=== PATIENT | female | born 1995 | race Caucasian/White ===

== ENCOUNTER 2024-02-03 23:40 | Emergency (ER) | payer MEDICAID, SELFPAY ==
[2024-02-03 23:42] VITALS: BP 113/56; PULSE 70; RESP 18; TEMP 36.7; O2SAT 98; BMI 21.9
--- NOTE | 2024-02-03 23:49 | XR_ITS ---
PROCEDURE INFORMATION: Exam: XR Right Finger(s) Exam date and time: 02/04/2024 12:20 AM Age: 28 years old Clinical indication: Injury or trauma; Other: Smashed right index finger in door; Swelling (edema); Additional info: Right index finger injury TECHNIQUE: Imaging protocol: Radiologic exam of the right fingers. Views: Minimum 2 views. Total images: 3 COMPARISON: No relevant prior studies available. FINDINGS: Bones/joints: No acute fracture or joint dislocation. No concerning bone lesions or calcifications. Joint spaces are well maintained. Soft tissues: Unremarkable soft tissues. IMPRESSION: Negative right index finger.
--- NOTE | 2024-02-04 01:21 | [facility].EDGENADL ---
Discharge Plan Disposition Patient Disposition: Home, Self-Care Referrals Follow up/Referrals: Beck Conte MD [Primary Care Provider] - See instructions Activity Restrictions/Add. Instructions Additional Instructions/Restrictions: You were evaluated in the ER. You are appropriate for discharge at this time. Keep the wound clean and dry. Keep a Band-Aid over it. As discussed, your nail will likely be sore and could potentially fall off. Make an appointment with your primary care physician for reevaluation in 2 to 3 days. Return to the ER with new, worsening, or otherwise concerning symptoms. Clinical Impressions Clinical Impression: Subungual hematoma of digit of hand Qualifiers: Encounter type: initial encounter Qualified Code(s): S60.10XA - Contusion of unspecified finger with damage to nail, initial encounter Discharge ED Provider: Audie Acosta Adult HPI General Chief complaint: Extremity Injury, Upper Stated complaint: AO [id number] Right pointer finger Time Seen by Provider: 02/04/24 01:14 Mode of Arrival: Ambulatory Source of Information: Patient Limitations: No Limitations Description of Symptoms (Recalled from ER Triage Doc. by RN): 28 F presents after smashing her right index finger in the car door. Patient reports the door shut all of the way and then she immediatley was able to open the door and her finger came out. Patient has obvious injury to her index finger; however, there is no deformity noted. CMS intact. History of Present Illness HPI narrative: Otherwise healthy 28-year-old female presents to the ER with concerns of pain in her right index finger. She smashed it in the car door. No deformity. Patient takes daily control but no other daily medications, no known drug allergies. No other injuries. Patient is able to fully bend and straighten the finger. She states she wanted to make sure it was not broken. Related Data Allergies Allergy/AdvReac Type Severity Reaction Status Date / Time No Known Allergies Allergy Verified 02/03/24 23:49 [facility] Disclaimer: The information contained in this section may have been updated after the patient was seen, as this information can be updated by other users. Social History Smoking Status: Never smoker alcohol intake: never current occupational status: other Travel in the last 8 weeks: None ROS Obtained: Yes All systems reviewed & no additional complaints except as documented Musculoskeletal Musculoskeletal: Reports other (Right index finger pain) Physical Exam General General appearance: alert and in no apparent distress Head Head exam: atraumatic and normocephalic Eye Eye exam: Present PERRL and EOMI ENT ENT exam: Present mucous membranes moist Neck Neck exam: Present normal inspection and full ROM Chest Chest inspection: Present symmetric chest wall rise Respiratory Respiratory exam: Absent respiratory distress or stridor Cardiovascular Cardiovascular exam: Present regular rate and normal rhythm Extremities Exam Extremities exam: Present full ROM, tenderness (Distal phalanx of right index finger, range of motion full, neurovascularly intact), normal capillary refill and other (Small subungual hematoma of right index finger nail, superficial abrasion at the base of the nail. Nail is well secured, intact.) Neurological Exam Neurological exam: Present alert and oriented X3; Absent motor sensory deficit Psychiatric Psychiatric exam: Present normal affect and normal mood Skin Skin exam: Present warm and dry Medical Decision Making Adolfo Inquiry Pt receiving controlled substance: No Vital Signs: 02/03/24 23:42 Temperature 98.1 F Temperature Source Oral Pulse Rate [Left] 70 Respiratory Rate 18 Blood Pressure [Right Arm] 113/56 L Blood Pressure Mean [Right Arm] 75 Blood Pressure Source [Right Arm] Automatic Cuff Blood Pressure Position [Right Arm] Sitting 02 Sat by Pulse Oximetry 98 Oxygen Delivery Method Room Air Orders (Tests/Meds): ORDERS Category Date Time Status Finger XR right minimum 2 views [XR finger RT min 2V] Exams 02/03/24 23:49 Taken Stat Medical Decision Narrative: In summary, 28-year-old female presents to the ER with concerns of right index finger pain after slamming it in a car door. On initial evaluation patient is hemodynamically stable, afebrile, she has hemostatic abrasion at the base of the right fingernail with small subungual hematoma, nail is well secured and intact. Differential diagnosis includes but is not limited to fracture, subungual hematoma, laceration, foreign body, I also considered nailbed injury but do not appreciate findings of this on exam. X-ray of the right finger was performed and personally interpreted, I do not appreciate obvious fracture or other osseous abnormality. See radiology read for final interpretation. I recommended trephination of nail due to subungual hematoma, however after discussing the procedure, patient declined it. She understands this will likely lead to pain, potential for the nail falling off, permanent nail deformity. Patient declined trephination. Band-Aid was applied to the finger and patient was appropriate for discharge. Patient was given instructions on symptomatic management, follow up instructions, and return precautions for the emergency department. Patient indicated understanding and was discharged in stable condition. Critical Care Critical Care Time Critical Care Time: No
[2024-02-04 01:27] VITALS: BP 110/68; PULSE 64; RESP 16; TEMP 36.8; O2SAT 98
== END 2024-02-04 01:28 | disposition home or self-care (01) ==
PROVIDERS: Emergency Provider Emergency Medicine; PCP Family Medicine
DX: S60.021A Contusion of right index finger without damage to nail, initial encounter (principal); W23.0XXA Caught, crushed, jammed, or pinched between moving objects, initial encounter
CPT/HCPCS: 73140; 99283